=== PATIENT | male | born 1995 | race Caucasian/White ===

== ENCOUNTER 2016-07-16 11:32 | Emergency (ER) | payer BC, OTHER ==
[~2016-07-16] VITALS: Ht 177.8 cm; Wt 98.0 kg
[2016-07-16 11:44] VITALS: TEMP 36.5; Ht 177.8 cm; Wt 98.0 kg
--- NOTE | 2016-07-16 12:36 | EMERGENCY ROOM VISIT NOTE ---
History First contact with patient: 11:56 Chief Complaint: ABNORMAL LABS Stated Complaint: LOW PLATELETS, NOSEBLEEDS, EASY BRUISING, FATIGUE History of Present Illness The patient is a 21 year old male who presents to the Emergency Room via the private vehicle with complaints of "low platelets, nosebleeds, easy bruising, fatigue". He states that he was here one month prior and diagnosed with ITP and his initial presentation was chest pain. He states that since then he has not had any resolution of symptoms and notes that he feels as though he bruises easily, gets frequent nosebleeds and feels very fatigued. He also has loss of appetite. He states that he follows with Dr. Balbir Armas, from [facility] here in [place]. He states that he did have a redraw of his platelet count and was found to be 60,000 a few weeks ago but has not had any follow-up since then. He does note he was on high-dose steroids for a period time but is now finished those. He also voices concern whether or not this could be leukemia. He denies any chest pain, shortness of breath, headache, fevers, chills, abdominal pain, nausea, vomiting, blood in the stool, bloody urine, gingival bleeding, rashes on his skin or petechial rashes. He does admit to anabolic steroid use. He denies any creatine supplements. Review of Systems A complete 10-point Review of Systems was discussed with the patient, with pertinent positives and negatives listed in the History of Present Illness. All remaining Review of Systems questions can be considered negative unless otherwise specified. Past Medical/Surgical History Medical Problems: (1) HTN (hypertension) Thrombocytopenia Family History Patient reports no known family medical history. Unremarkable Social History Smoking Status: Never Smoker Drug Use: other Marital Status: in relationship Current/Historical Medications Scheduled Dexamethasone (Decadron), 10 TABS PO DAILY Allergies Coded Allergies: No Known Allergies (Unverified , 07/16/16) Physical Exam Vital Signs Date Time Temp Pulse Resp B/P Pulse Ox O2 Delivery O2 Flow Rate FiO2 07/16/16 15:30 79 20 140/83 97 Room Air 07/16/16 14:00 97 Room Air 07/16/16 13:35 80 16 142/82 96 Room Air 07/16/16 11:44 36.5 83 16 152/84 93 Room Air Physical Exam VITAL SIGNS - Vital signs and nursing notes were reviewed. Patient is afebrile , he is hypertensive at 152/84, he is not tachycardic and is saturating on room air at 93%. GENERAL -21-year-old male appearing his stated age who is in no acute distress. He does seem fatigued. Communicates well with provider and answers questions appropriately. SKIN - Without rashes. No petechial rashes. HEAD - NC/AT. EYES - PERRL with EOMI bilaterally. Sclera anicteric. Palpebral conjunctiva pink and moist with no injection noted. EARS - No deformities of external structures noted on gross examination bilaterally. No hemotympanum. External auditory canals without discharge or otorrhea. Tympanic membranes pearly dozier without retraction or bulging. No fluid or purulent material visualized behind the TM. Handle of malleus, umbo, cone of light, pars tensa/flaccid all easily visualized. NOSE - Midline and without cyanosis. No epistaxis or purulent drainage noted. Septum midline without deviation or septal hematoma noted. MOUTH/OROPHARYNX - Without perioral cyanosis. Buccal mucosa pink and moist and without leukoplakia. Tongue midline with equal elevation of palate bilaterally. No tonsillar hypertrophy, erythema, or exudates noted. Good dentition noted. No hemorrhagic bulla. No gingival bleeding. NECK - Neck with FROM. Supple to palpation. No lymphadenopathy noted. No nuchal rigidity. LUNGS - Chest wall symmetric without accessory muscle use, intercostals retractions, or central cyanosis. Normal vesicular breath sounds CTA B/L. No wheezes, rales, or rhonchi appreciated. CARDIAC - RRR with S1/S2. No murmur, rubs, or gallops appreciated. ABDOMEN - Abdominal contour without pulsations or visible masses. BS normoactive all four quadrants. No tenderness, palpable masses, hepatosplenomegaly, or ascites noted. EXTREMITIES - No clubbing or peripheral cyanosis. No pretibial edema present. +5 /5 strength noted in UE/LE bilaterally. NEUROLOGIC - Cranial nerves II through XII grossly intact. Sensory intact to light touch throughout. PSYCH - A&Ox3 and cooperates fully with examiner. Pt is very pleasant and interacts well with examiner. Medical Decision & Procedures Laboratory Results 07/16/16 12:30 Red Blood Count 5.51, Mean Corpuscular Volume 84.4, Mean Corpuscular Hemoglobin 31.2, Mean Corpuscular Hemoglobin Concent 37.0 07/16/16 12:30 Test 07/16/16 12:30 07/16/16 12:41 07/16/16 13:35 07/16/16 14:47 White Blood Count 5.83 K/uL (4.8-10.8) Red Blood Count 5.51 M/uL (4.7-6.1) Hemoglobin 17.2 g/dL (14.0-18.0) Hematocrit 46.5 % (42-52) Mean Corpuscular Volume 84.4 fL (80-100) Mean Corpuscular Hemoglobin 31.2 pg (25-34) Mean Corpuscular Hemoglobin Concent 37.0 g/dl (32-36) Platelet Count 25 K/uL (130-400) RDW Standard Deviation 38.8 fL (36.4-46.3) RDW Coefficient of Variation 12.7 % (11.5-14.5) Neutrophils % (Manual) 54.7 % Lymphocytes % (Manual) 20.9 % Variant Lymphocytes % (manual) 15.7 % Monocytes % (Manual) 6.1 % Eosinophils % (Manual) 0.9 % Basophils % (Manual) 1.7 % (0-2) Neutrophils # (Manual) 3.19 K/uL (1.4-6.5) Total Absolute Neutrophils 3.19 K/uL (1.4-6.5) Lymphocytes # (Manual) 1.22 K/uL (1.2-3.4) Absolute Variant Lymphocytes 0.92 K/uL Total Absolute Lymphocytes 2.13 K/uL (1.2-3.4) Monocytes # (Manual) 0.36 K/uL (0.11-0.59) Eosinophils # (Manual) 0.05 K/uL (0-0.5) Basophils # (Manual) 0.10 K/uL (0-0.2) Platelet Estimate SIGNIFIC DECREASED Red Blood Cell Morphology Unremarkable Anion Gap 9.0 mmol/L (3-11) Est Creatinine Clear Calc Drug Dose 84.3 ml/min Estimated GFR () 69.4 Estimated GFR (Non- 59.8 BUN/Creatinine Ratio 9.9 (10-20) Calcium Level 8.8 mg/dl (8.5-10.1) Total Bilirubin 0.6 mg/dl (0.2-1) Aspartate Amino Transf (AST/SGOT) 55 U/L (15-37) Alanine Aminotransferase (ALT/SGPT) 93 U/L (12-78) Alkaline Phosphatase 81 U/L (45-117) Total Creatine Kinase 533 U/L (39-308) Total Protein 7.2 gm/dl (6.4-8.2) Albumin 3.9 gm/dl (3.4-5.0) Globulin 3.3 gm/dl (2.5-4.0) Albumin/Globulin Ratio 1.2 (0.9-2) Bedside Troponin I 0.020 ng/ml (0-0.045) Influenza Type A Antigen Neg for Influ A (NEG) Influenza Type B Antigen Neg for Influ B (NEG) Urine Color YELLOW Urine Appearance CLOUDY (CLEAR) Urine pH 8.0 (4.5-7.5) Urine Specific [place] 1.021 (1.000-1.030) Urine Protein NEG (NEG) Urine Glucose (UA) NEG (NEG) Urine Ketones NEG (NEG) Urine Occult Blood NEG (NEG) Urine Nitrite NEG (NEG) Urine Bilirubin NEG (NEG) Urine Urobilinogen NEG (NEG) Urine Leukocyte Esterase NEG (NEG) Urine WBC (Auto) 0 /hpf (0-5) Urine RBC (Auto) 0-4 /hpf (0-4) Urine Hyaline Casts (Auto) 0 /lpf (0-5) Urine Epithelial Cells (Auto) 0-5 /lpf (0-5) Urine Bacteria (Auto) NEG (NEG) Urine Opiates Screen NEG (NEG) Urine Methadone, Qualitative NEG (NEG) Urine Barbiturates NEG (NEG) Urine Phencyclidine (PCP) Level NEG (NEG) Ur Amphetamine/Methamphetamine NEG (NEG) MDMA (Ecstasy) Screen NEG (NEG) Urine Benzodiazepines Screen NEG (NEG) Urine Cocaine Metabolite NEG (NEG) Urine Marijuana (THC) NEG (NEG) Medications Administered Medications (Trade) Dose Ordered Sig/Hafsa Route Start Time Stop Time Status Last Admin Dose Admin Sodium Chloride (Nss 1000ml) 1,000 ml @ 999 mls/hr Q1H1M STAT IV 07/16/16 13:18 07/16/16 14:18 DC 07/16/16 13:30 999 MLS/HR Medical Decision Patient was seen and evaluated as above. After obtaining a thorough history and physical examination IV access was obtained and a CMP, point care troponin, stat EKG, CBC with auto differential, CPK, influenza swab, CPK, UA clean catch culture if indicated, urine drug profile, secondary to subjective and objective examination findings. He was hydrated with 1 L of normal saline. Monitor was applied and continuous pulse ox was initiated. CBC revealed platelet count of 25,000. CMP revealed a creatinine elevation of 1.6. AST and ALT were elevated at 55 and 93 respectively. Total CK elevated at 533. Urine revealed slight elevation in pH without protein. Toxicology was negative. Negative for influenza. The elevation of the creatinine to 1.6 is up 0.2 from previous. He does have a history of ITP. He was instructed to have the creatinine and other labs repeated with his family doctor. He noted that he does not have a specific family doctor, but can go to the [facility] in [place]. I informed her that it is important to have his labs repeated. EKG appears to look better than previous and revealed normal sinus rhythm, rate of 73 bpm. No ectopy or ischemic change noted. There is no chest pain. 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 He was called at 3:09 PM. I discussed the case with him. I then spoke with him again 3:19 PM and it was decided the patient should be started on 40 mg of Decadron, which is 10, 4 mg tablets for the next 4 days. He stated that he will then see him this coming Friday but is to return to the emergency department with any bleeding. The patient is to be contacted by his office regarding this visit, but was instructed to call if he is not contacted by the end of the week. Again the patient is to have the other labs repeated with his family doctor or return here if unable to get them repeated. He was educated upon worrisome symptoms which to return, had questions answered prior to discharge, and was discharged home in good condition. In evaluation treatment this patient the following differential diagnoses were entertained: Acute renal failure, influenza, myocardial infarction, ITP, umbo cytopenia, among others. Patient was instructed to discontinue the anabolic steroid use. Impression Primary Impression: Thrombocytopenia Additional Impressions: Elevated CPK Creatinine elevation Departure Information Dispostion Home / Self-Care Condition GOOD Prescriptions Dexamethasone (DECADRON) 4 Mg Tab 10 TABS PO DAILY for 4 Days, #40 TAB Please take Ten (4mg) tabs each night for the next 4 nights. Prov: Levi Begum PA-C 07/16/16 Referrals No Doctor, Assigned (PCP) Balbir Armas MD Patient Instructions [facility] Additional Instructions You were seen in the emergency department for easy bruising, nosebleeds fatigue and low platelets. You likely have ITP.. Your platelet count today was 25,000. Your creatinine was 1.6. Your AST was 55 and your ALT was 93. Your total chronic kinase was 533. THESE LABS SHOULD BE REPEATED PRIYANKA! [facility] [place] by [facility] to make an appointment.If unable please return here! Please have these values repeated with the [facility] [place] as we discussed or return to the emergency department. He should be repeated as soon as possible. The case was discussed with Dr. Silvestre who recommended that I place you on Decadron. This is 10 four mg tablets each night for the next 4 nights. You should be expecting a call from his office in the near future. If you do not hear from the office within the week please call the number listed above for his office. Again please have the above lab work repeated and follow-up with your family doctor/[facility]. These return to the emergency department with any new/concerning symptoms, especially if you would develop bleeding, bruising or any rashes. Problem Qualifiers
[2016-07-16 13:03] LABS: BUN/CREATININE RATIO 9.9 (10-20); CALCIUM 8.8 mg/dl (8.5-10.1); CREATININE 1.6 mg/dl (0.60-1.40); POTASSIUM 4.2 mmol/L (3.5-5.1)
[2016-07-16 13:06] LABS: ALB/GLOB RATIO 1.2 (0.9-2)
[2016-07-16] MEDS ORDERED: SODIUM CHLORIDE 0.9% 1000ML 1,000 ML IV STA (13:18)
[2016-07-16 13:33] LABS: HEMATOCRIT 46.5 % (42-52); MEAN CELL VOLUME 84.4 fL (80-100); MEAN CORPUSCULAR HEMOGLOBIN 31.2 pg (25-34); RED BLOOD COUNT 5.51 M/uL (4.7-6.1); WHITE BLOOD COUNT 5.83 K/uL (4.8-10.8)
[2016-07-16 13:35] LABS: BASOPHIL % 1.7 % (0-2); COMPLETE YES; EOSINOPHIL % 0.9 %; LYMPH ABS # 1.22 K/uL (1.2-3.4); LYMPHOCYTE % 20.9 %; NEUTROPHILS % 54.7 %; PLT ESTIMATE SIGNIFIC DECREASED; VARIANT LYM ABS # 0.92 K/uL; VARIANT LYMPHOCYTE % 15.7 %
[2016-07-16 13:37] LABS: PLATELET COUNT 25 K/uL (130-400)
[2016-07-16 14:00] VITALS: O2SAT 97
[2016-07-16 15:27] LABS: URINE APPEARANCE CLOUDY (CLEAR); URINE BILIRUBIN NEG (NEG); URINE COLOR YELLOW; URINE EPITHELIAL CELL AUTO 0-5 /lpf (0-5); URINE NITRITE NEG (NEG); URINE SPECIFIC GRAVITY 1.021 (1.000-1.030); UROBILINOGEN NEG (NEG); ZZUR CULT IF INDIC CLEAN CATCH NO
[2016-07-16 15:30] VITALS: BP 140/83; PULSE 79; O2SAT 97
[2016-07-16] MEDS ORDERED: DXM/4 PO (15:30)
[2016-07-16 15:32] LABS: MANUAL MICROSCOPIC REQUIRED? NO; REVIEW REQ? NO
[2016-07-16 15:34] LABS: BENZODIAZEPINE, URINE NEG (NEG); COCAINE,URINE NEG (NEG); PHENCYCLIDINE, URINE NEG (NEG)
== END 2016-07-16 15:55 | disposition home or self-care (01) ==
LOC: C.EDB 11:34
DX: D69.6 Thrombocytopenia, unspecified (principal); R79.82 Elevated C-reactive protein (CRP); I10 Essential (primary) hypertension